=== PATIENT | female | born 1975 | race Two or more races ===

== ENCOUNTER → 2018-04-12 09:18 | Outpatient (CLI) | payer OTHER | END | disposition home or self-care (01) | LOC: LAB 08:49 | DX: D50.8 Other iron deficiency anemias (principal); E83.51 Hypocalcemia; E03.8 Other specified hypothyroidism; N39.0 Urinary tract infection, site not specified; E78.2 Mixed hyperlipidemia ==

== ENCOUNTER 2018-04-12 09:59 | Outpatient (CLI) | payer OTHER | END 2018-04-12 10:26 | disposition home or self-care (01) | LOC: MAMO-SONO 09:59 | DX: Z12.31 Encounter for screening mammogram for malignant neoplasm of breast (principal); D25.9 Leiomyoma of uterus, unspecified; N84.0 Polyp of corpus uteri; E03.8 Other specified hypothyroidism ==

== ENCOUNTER 2018-05-10 07:10 | Outpatient (CLI) | payer OTHER | END 2018-05-10 07:22 | disposition home or self-care (01) | LOC: TOM 07:10 | DX: J32.4 Chronic pansinusitis (principal) ==

== ENCOUNTER 2018-07-29 05:20 | Day surgery (SDC) | payer OTHER | END 2018-07-29 12:20 | disposition home or self-care (01) | LOC: CIR.AMB 05:20 | DX: N84.0 Polyp of corpus uteri (principal) ==

== ENCOUNTER → 2020-11-14 | Outpatient (CLI) | payer OTHER | END | disposition home or self-care (01) | LOC: MRI 07:00 | DX: G93.2 Benign intracranial hypertension (principal) | CPT/HCPCS: 70546; 70553 ==

== ENCOUNTER 2021-05-15 09:47 | Outpatient (CLI) | payer OTHER | END 2021-05-15 10:05 | disposition home or self-care (01) | LOC: MAMO-SONO 09:47 | PROVIDERS: ATTEND Specialist | DX: N64.59 Other signs and symptoms in breast (principal); D25.9 Leiomyoma of uterus, unspecified; Z12.31 Encounter for screening mammogram for malignant neoplasm of breast ==

== ENCOUNTER 2022-09-01 07:51 | Outpatient (CLI) | payer OTHER | END 2022-09-01 07:52 | disposition home or self-care (01) | LOC: LAB 07:51 | DX: I47.1 Supraventricular tachycardia (principal); G93.9 Disorder of brain, unspecified; Z01.812 Encounter for preprocedural laboratory examination ==

== ENCOUNTER 2023-07-09 08:07 | Outpatient (CLI) | payer OTHER | END 2023-07-09 08:30 | disposition home or self-care (01) | LOC: MAMO-SONO 08:07 | DX: Z12.31 Encounter for screening mammogram for malignant neoplasm of breast (principal); N63.0 Unspecified lump in unspecified breast; N64.4 Mastodynia; R10.2 Pelvic and perineal pain ==

== ENCOUNTER 2024-08-21 11:36 | Outpatient (CLI) | payer OTHER | END 2024-08-21 11:48 | disposition home or self-care (01) | LOC: MAMO-SONO 11:36 | PROVIDERS: ATTEND Specialist | DX: D25.9 Leiomyoma of uterus, unspecified (principal); N63.0 Unspecified lump in unspecified breast; Z12.31 Encounter for screening mammogram for malignant neoplasm of breast ==